=== PATIENT | female | born 1955 | race African-American/Black ===

== ENCOUNTER 2016-12-31 20:04 | Emergency (ER) | payer MEDICAID ==
[~2016-12-31] VITALS: Ht 162.6 cm; Wt 65.0 kg
[2016-12-31 20:11] VITALS: BP 154/81
== END 2017-01-01 01:30 | disposition left against medical advice (07) ==
LOC: ER 20:04
DX: Z53.21 Procedure and treatment not carried out due to patient leaving prior to being seen by health care provider (principal)

== ENCOUNTER 2017-10-10 18:26 | Emergency (ER) | payer SELFPAY ==
[~2017-10-10] VITALS: Ht 162.6 cm; Wt 55.0 kg
[2017-10-10] MEDS ORDERED: HYDR12.529 PO (18:29)
[2017-10-10] MEDS ORDERED: SODIUM CHLORIDE 0.9% 1,000 ML IV ONE (18:39)
[2017-10-10] MEDS ORDERED: ONDANSETRON HCL 4MG/2ML VIAL IV ONE (18:45)
[2017-10-10] MEDS ORDERED: MORPHINE SULFATE 4 MG/ML CPJ (NOT FOR IM USE) IV ONE (18:45)
[2017-10-10 19:14] LABS: BASOPHILS % 2.9 % (0.0-2.0); EOSINOPHILS % 3.9 % (0.0-5.0); HEMATOCRIT. 35.5 % (36.0-48.0); HEMOGLOBIN. 11.9 g/dL (12.0-16.0); LYMPHOCYTES % 37.2 % (20.0-50.0); MEAN CORPUSCULAR HEMOGLOBIN 33.3 pg (28.0-32.0); MEAN CORPUSCULAR VOLUME 99.5 fL (81.0-99.0); MEAN PLATELET VOLUME 7.8 fl (7.4-10.4); MONOCYTES % 8.8 % (2.0-8.0); NEUTROPHILS % 47.2 % (40.0-76.0); PLATELET 235 x1000/uL (130-400); RED BLOOD CELL COUNT 3.57 mill/uL (4.2-5.4); RED CELL DISTRIBUTION WIDTH 14.6 % (11.6-14.6)
[2017-10-10 19:16] LABS: CHLORIDE 106 mEq/L (98-107)
[2017-10-10 19:26] LABS: B-HCG QUANTITATIVE 2 mIU/mL (<3)
[2017-10-10] MEDS ORDERED: MORPHINE SULFATE 4 MG/ML CPJ (NOT FOR IM USE) IV STA (20:29)
[2017-10-10 23:00] VITALS: BP 121/78
== END 2017-10-10 23:15 | disposition home or self-care (01) ==
LOC: ER 19:15
DX: N93.9 Abnormal uterine and vaginal bleeding, unspecified (principal); D53.9 Nutritional anemia, unspecified; M79.7 Fibromyalgia; I10 Essential (primary) hypertension; F17.210 Nicotine dependence, cigarettes, uncomplicated; F12.10 Cannabis abuse, uncomplicated; Z90.49 Acquired absence of other specified parts of digestive tract
CPT/HCPCS: 36415; 76830; 76856; 80053; 84702; 85025; 85610; 86850; 86900; 86901; 96361; 96374; 96375; 99285; 99406; J2270; J2405; J7030; Z7610

== ENCOUNTER 2019-11-08 20:26 | Emergency (ER) | payer MEDICAID ==
[~2019-11-08] VITALS: Ht 165.1 cm; Wt 68.0 kg
[~2019-11-08 20:26] MED LIST: HYDR12.529 PO
[2019-11-08] MEDS ORDERED: CLONIDINE 0.2MG TABLET PO ONE (21:00)
[2019-11-08 21:47] LABS: CHLORIDE 105 mEq/L (98-107)
[2019-11-08 21:51] LABS: ETHANOL BLOOD 287 mg/dL
[2019-11-08 21:54] LABS: BASOPHILS % 3.4 % (0.0-2.0); EOSINOPHILS % 1.8 % (0.0-5.0); HEMATOCRIT. 34.4 % (36.0-48.0); HEMOGLOBIN. 11.8 g/dL (12.0-16.0); LYMPHOCYTES % 32.6 % (20.0-50.0); MEAN CORPUSCULAR HEMOGLOBIN 34.1 pg (28.0-32.0); MEAN CORPUSCULAR VOLUME 99.5 fL (81.0-99.0); MEAN PLATELET VOLUME 7.8 fl (7.4-10.4); MONOCYTES % 14.6 % (2.0-8.0); NEUTROPHILS % 47.6 % (40.0-76.0); PLATELET 291 x1000/uL (130-400); RED BLOOD CELL COUNT 3.46 mill/uL (4.2-5.4); RED CELL DISTRIBUTION WIDTH 16.3 % (11.6-14.6)
[2019-11-08 22:13] LABS: *AMPHETAMINES SCREEN URINE NEGATIVE (NEGATIVE); *BARBITURATES SCREEN URINE NEGATIVE (NEGATIVE); *BENZODIAZEPINES SCREEN URINE NEGATIVE (NEGATIVE); *COCAINE SCREEN URINE NEGATIVE (NEGATIVE); METHADONE URINE SCREEN NEGATIVE (NEGATIVE); OPIATES URINE SCREEN NEGATIVE (NEGATIVE)
[2019-11-08 22:14] LABS: CANNABINOID URINE SCREEN PRESUMTIVE POSITIVE (NEGATIVE); PHENCYCLIDINE URINE SCREEN NEGATIVE (NEGATIVE)
[2019-11-08] MEDS ORDERED: SODIUM CHLORIDE 0.9% 1,000 ML IV NR (23:00)
[2019-11-09 01:13] VITALS: BP 100/57
== END 2019-11-09 02:26 | disposition home or self-care (01) ==
LOC: ER 20:26
DX: F10.129 Alcohol abuse with intoxication, unspecified (principal); Y90.0 Blood alcohol level of less than 20 mg/100 ml; J45.909 Unspecified asthma, uncomplicated; I10 Essential (primary) hypertension
CPT/HCPCS: 36415; 71045; 80053; 80305; 80320; 83880; 84484; 85025; 93005; 96360; 96361; 99285; G0480